=== PATIENT | male | born 1955 | race Caucasian/White ===

== ENCOUNTER → 2017-03-20 | Day surgery (SDC) | payer BC ==
[~2017-03-20] MED LIST: Lactated Ringers 1,000 ML IV SCH; Propofol 200 MG/20 ML SDV IV ONE
[2017-03-20 13:15] VITALS: BP 114/54
--- NOTE | 2017-03-23 07:06 | OR ---
DATE OF OPERATION: 03/20/2017 PREOPERATIVE DIAGNOSIS: SCREENING COLONOSCOPY. POSTOPERATIVE DIAGNOSIS: SCREENING COLONOSCOPY. SURGEON: Michael Louie MD PROCEDURE: FULL-LENGTH COLONOSCOPY. ANESTHESIA: [employer]IST due to anxiety disorder. COMPLICATIONS: None. SPECIMEN: None. FINDINGS: Normal full-length colonoscopy. RECOMMENDATIONS: Follow up colonoscopy every 10 years. INDICATIONS: Mr. Fisher was in for physical. He has never had a screening colonoscopy. DYANA Farah, recommended the procedure. DESCRIPTION OF PROCEDURE: The patient was prepped and draped, placed in the left lateral decubitus position. A lubricated Olympus colonoscope was inserted and ultimately advanced to the cecum. The patient was extremely tortuous and redundant, but the scope did pass easily where we directly visualize the ileocecal valve and appendiceal orifice. The bowel prep was excellent. Upon withdrawing the scope, throughout the entire length of the colon I found no signs of any polyps, masses, ulcerations, or bleeding sites. No vascular abnormalities or signs of colitis. There were no diverticula. The rectal vault was unremarkable. Retroflexion scope in the rectum showed some minimal perianal hemorrhoids disease, not actively inflamed. Air was then suctioned and the scope was removed without complication. KENDALL/ANCA /[id number]
== END ==
LOC: CC.SDS 11:32
PROVIDERS: ATTEND Family Medicine
DX: Z12.11 Encounter for screening for malignant neoplasm of colon (principal); F41.8 Other specified anxiety disorders
CPT/HCPCS: 45378; J2704; J7120